=== PATIENT | female | born 1950 ===

== ENCOUNTER 2017-09-23 17:07 | Emergency (ER) | payer OTHER ==
[~2017-09-23] VITALS: Ht 157.5 cm; Wt 59.0 kg
[~2017-09-23 17:07] MED LIST: DOLOGEN CAPLET1 EACH PO; METFORMIN HCL500 M1; NORVASC10 MG PO; VASOTEC5 MG PO
[2017-09-23] MEDS ORDERED: VERAPAMIL ER180 MG (17:45)
[2017-09-23] MEDS ORDERED: VERAPAMIL ER240 MG PO (18:45)
== END 2017-09-23 18:53 | disposition home or self-care (01) ==
LOC: ER 17:07
DX: I10 Essential (primary) hypertension (principal)

== ENCOUNTER 2019-01-28 09:28 | Emergency (ER) | payer OTHER ==
[~2019-01-28] VITALS: Ht 160 cm; Wt 63.5 kg
[~2019-01-28 09:28] MED LIST changes: +VERAPAMIL ER180 MG; +VERAPAMIL ER240 MG PO
[2019-01-28] MEDS ORDERED: ATORVASTATIN CA20 MG (10:03)
[2019-01-28] MEDS ORDERED: HYDROCHLOROTHIA25 MG (10:03)
[2019-01-28] MEDS ORDERED: NORFLEX100MG PO (13:06)
[2019-01-28] MEDS ORDERED: DICLOFENAC POTA50 MG PO (13:06)
== END 2019-01-28 13:15 | disposition home or self-care (01) ==
LOC: ER 09:28
DX: M75.51 Bursitis of right shoulder (principal); M75.81 Other shoulder lesions, right shoulder

== ENCOUNTER → 2019-02-02 | Emergency (ER) | payer OTHER ==
[~2019-02-02] VITALS: Ht 157.5 cm; Wt 60.8 kg
[~2019-02-02] MED LIST changes: +ATORVASTATIN CA20 MG; +DICLOFENAC POTA50 MG PO; +HYDROCHLOROTHIA25 MG; +NORFLEX100MG PO
== END | disposition left against medical advice (07) ==
LOC: ER 17:05
DX: Z53.20 Procedure and treatment not carried out because of patient's decision for unspecified reasons (principal)

== ENCOUNTER → 2019-12-09 | Emergency (ER) | payer OTHER ==
[~2019-12-09] VITALS: Ht 157.5 cm; Wt 61.7 kg
== END | disposition left against medical advice (07) ==
LOC: ER 15:00
DX: Z53.20 Procedure and treatment not carried out because of patient's decision for unspecified reasons (principal)

== ENCOUNTER → 2020-03-24 | Emergency (ER) | payer OTHER | END | disposition left against medical advice (07) | LOC: ER 21:08 | DX: Z53.20 Procedure and treatment not carried out because of patient's decision for unspecified reasons (principal) ==